=== PATIENT | female | born 1980 | race Caucasian/White ===

== ENCOUNTER 2022-01-13 15:45 | Inpatient (IN) | payer BC ==
[2022-01-13] MEDS ORDERED: DUONEB 0.5-3 MG/3 ml Neb IH ONE ×2 (16:21→16:28)
--- NOTE | 2022-01-13 16:22 | ERPHSYRPT ---
- History of Present Illness Source: patient Exam Limitations: no limitations Patient Subjective Stated Complaint: SOB Triage Nursing Assessment: Patient brought back to ED per w/c and transferred self to bed. Patient A+O X3. Patient's skin flushed, warm and dry. Patient was seen in [facility] and sent to ED for SOB. [facility] and given Z ankur and tessalon pearls. Patient states she is not getting any better. Patient complains of non productive cough and mid sternal, jonh lungs and back pain 5/10. Lungs noted to be diminsinshed throughout. Physician History: 41 yo wf w dyspnea x3days/cough b28brav/Mild coryza. Dyspnea worse upon exertion. She smokes 1ppd. Pt states that her chest is tight but denies chest pain. N/V/D/fever/ST/PND/orthopnea all denied. Pt seen several days ago in clinic and started on Z-ankur and prednisone. Timing/Duration: other (Dyspnea x3days/Cough x13 days) Cough Quality/Degree: dry cough Possible Cause: occasional episodes Modifying Factors: Improves With: coughing, deep breath, exertion Associated Symptoms: chest pain/soreness, cough, nasal congestion, nasal drainage, shortness of breath, wheezing, No fever, No chills, No dizziness, No earache, No facial pain, No headache, No lightheadedness, No muscle aches, No sinus infection, No sore throat Allergies/Adverse Reactions: No Known Drug Allergies Allergy (Verified 01/13/22 15:47) Home Medications: Pregabalin 200 mg PO TID 01/13/22 [History] Hx Tetanus, Diphtheria Vaccination/Date Given: Yes Hx Influenza Vaccination/Date Given: No Hx Pneumococcal Vaccination/Date Given: No Immunizations Up to Date: Yes Travel Risk - International Travel Have you traveled outside of the country in past 3 weeks: No - Coronavirus Screening Are you exhibiting any of the following symptoms?: No Close contact with a COVID-19 positive Pt in past 14-21 Days: No - Vaccine Status Have you recieved a Covid-19 vaccination: Yes 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 - Vaccination Dates Date of 2cond Vaccination (if applicable): na - Review of Systems Constitutional: No Symptoms Eyes: No Symptoms Ears, Nose, & Throat: No Symptoms, Nose Pain, Nose Congestion, Nose Discharge Respiratory: No Symptoms, Cough, Dyspnea, Dyspnea on Exertion (MORENO) Cardiac: No Symptoms Abdominal/Gastrointestinal: No Symptoms Genitourinary Symptoms: No Symptoms Musculoskeletal: No Symptoms Skin: No Symptoms Neurological: No Symptoms Psychological: No Symptoms Endocrine: No Symptoms Hematologic/Lymphatic: No Symptoms Immunological/Allergic: No Symptoms - Past Medical History Pertinent Past Medical History: Yes Neurological History: No Pertinent History ENT History: No Pertinent History Cardiac History: Other Respiratory History: No Pertinent History Endocrine Medical History: Other Musculoskeletal History: Degenerative Disk Disease, Other GI Medical History: No Pertinent History Psycho-Social History: No Pertinent History Female Reproductive Disorders: No Pertinent History Other Medical History: Adrenal gland tumor - Past Surgical History Past Surgical History: Yes Neuro Surgical History: No Pertinent History Cardiac: No Pertinent History Gastrointestinal: No Pertinent History Genitourinary: No Pertinent History Musculoskeletal: No Pertinent History Female Surgical History: Tubal Ligation Other Surgical History: ADRENAL GLAND REMOVAL - Social History Smoking Status: Current every day smoker How long have you smoked: years Exposure to second hand smoke: Yes Drug Use: none Patient Lives Alone: No Significant Family History: no pertinent family hx - Female History Hx Last Menstrual Period: currently Hx Now: No - Nursing Vital Signs Nursing Vital Signs: Initial Vital Signs Temperature 99.4 F 01/13/22 15:49 Pulse Rate 93 H 01/13/22 15:49 Respiratory Rate 28 H 01/13/22 15:49 Blood Pressure 150/103 01/13/22 15:49 O2 Sat by Pulse Oximetry 98 01/13/22 15:49 Pain Scale Pain Intensity 3 Hypertensive/Tachyneic - Physical Exam General Appearance: no apparent distress Eye Exam: PERRL/EOMI, eyes nml inspection Ears, Nose, Throat Exam: pharynx normal, other (TM's occluded by cerumen B) Neck Exam: normal inspection, non-tender, supple, full range of motion, No meningismus, No mass, No Brudzinski, No Kernig's, No carotid bruit Respiratory Exam: airway intact, prolonged expirations, wheezing (Scattered Wheezes B) Cardiovascular Exam: regular rate/rhythm, normal heart sounds, capillary refill <2 sec, No murmur Gastrointestinal/Abdomen Exam: soft, normal bowel sounds, No tenderness Back Exam: normal inspection, normal range of motion Extremity Exam: normal inspection, normal range of motion, pelvis stable, No melton Neurologic Exam: alert, oriented x 3, cooperative, lump maker II-XII nml as tested, normal mood/affect, nml cerebellar function, nml station & gait, sensation nml Skin Exam: normal color, warm, dry Lymphatic Exam: No adenopathy SpO2 Interpretation: normal SpO2: 98 O2 Delivery: Room Air - Course Nursing assessment & vital signs reviewed: Yes EKG Interpreted by Me: RATE (NSR/Rate 89/Normal QT-QTc/Low voltage/Flat T waves/No acute ST changes) - Radiology Exams Chest X-ray Interpretation: Reviewed by me (Reviewed from clinic today/NAD per Dr. Gao) - CT Exams Chest CT Interpretation: Tele-radiologist Report (No PE/Diffuse tree in bud infiltrates) Ordered Tests: Active Orders 24 hr Category Date Time Status IV Insertion STAT Care 01/13/22 16:21 Completed Heart-Healthy Diet Diet 01/14/22 Breakfast Active CHEST WITH CONTRAST [CT] Stat Exams 01/13/22 17:52 Completed BNP [NT PRO BNP] Stat Lab 01/13/22 19:32 Completed CBC W DIFF AM.LAB Lab 01/14/22 04:00 Ordered CBC W DIFF Stat Lab 01/13/22 16:18 Completed CMP AM.LAB Lab 01/14/22 04:00 Ordered CMP Stat Lab 01/13/22 19:32 Completed D-DIMER QUANTITATIVE Stat Lab 01/13/22 16:18 Completed NT PRO BNP Stat Lab 01/13/22 16:18 Completed PROTIME WITH INR Stat Lab 01/13/22 16:18 Completed PTT Stat Lab 01/13/22 16:18 Completed TROPONIN Q4H Lab 01/13/22 16:18 Completed TROPONIN Q4H Lab 01/13/22 19:20 Completed TROPONIN Q4H Lab 01/14/22 00:15 Ordered Respiratory Therapy Assessment DAILY RT 01/13/22 16:44 Completed Medication Summary Generic Name Dose Route Start Last Admin Trade Name Freq PRN Reason Stop Dose Admin Albuterol/Ipratropium 3 ml 01/13/22 23:00 01/13/22 23:03 Ipratropium/Albuterol Sulfate 3 Ml Ampul.Neb IH 02/12/22 22:59 3 ml Q4HRT FLORA Administration Chlorphenir/Hydrocodone Polistirex 5 ml 01/13/22 22:37 01/13/22 22:53 Hydrocodone/Chlorphen P-Stirex 1 Ml Teresa.Er.12h PO 02/12/22 22:36 5 ml Q6H PRN Administration COUGH Methylprednisolone Sodium 0 mg 01/14/22 00:00 01/14/22 00:31 Succinate 125 mg/ Sterile IV 02/13/22 00:00 Not Given Water 2 ml Q6HT FLORA Enoxaparin Sodium 40 mg 01/14/22 10:00 Enoxaparin Sodium 40 Mg/0.4 Ml Syringe SQ 02/13/22 09:59 DAILY FLORA Sodium Chloride 1,000 mls @ 100 mls/hr 01/13/22 21:15 01/13/22 21:19 Sodium Chloride 0.9% 1000 Ml IV 02/12/22 21:14 100 mls/hr .Q10H FLORA Administration Ceftriaxone Sodium/Dextrose 1 g in 50 mls @ 100 mls/hr 01/14/22 10:00 Rocephin 1 Gm-D5w 50 Ml Bag IV 01/17/22 09:59 Q24H10 FLORA Azithromycin 500 mg in 250 mls @ 250 mls/hr 01/14/22 10:00 Zithromax 500 Mg/ 250 Ml Nacl Premix IV 02/13/22 09:59 Q24H10 FLORA Ketorolac Tromethamine 30 mg 01/13/22 21:04 Ketorolac Tromethamine 30 Mg/Ml Inj IV 01/18/22 21:03 Q6H PRN PRN PAIN Ondansetron HCl 4 mg 01/13/22 21:04 Ondansetron Hcl 4 Mg/2 Ml Vial IV 02/12/22 21:03 Q6H PRN PRN NAUSEA/VOMITING Pantoprazole Sodium 40 mg 01/14/22 10:00 Pantoprazole 40 Mg Vial IV 02/13/22 09:59 Q24H10 FLORA Discontinued Medications Generic Name Dose Route Start Last Admin Trade Name Freq PRN Reason Stop Dose Admin Albuterol Sulfate 2.5 mg 01/13/22 17:10 01/13/22 17:24 Albuterol Sulfate 2.5 Mg/3 Ml Neb IH 01/13/22 17:11 2.5 mg STAT ONE Administration Albuterol Sulfate Confirm 01/13/22 17:12 Albuterol Sulfate 2.5 Mg/3 Ml Neb Administered 01/13/22 17:13 Dose 2.5 mg IH .STK-MED ONE Albuterol/Ipratropium 3 ml 01/13/22 16:21 01/13/22 16:43 Ipratropium/Albuterol Sulfate 3 Ml Ampul.Neb IH 01/13/22 16:22 3 ml STAT ONE Administration Albuterol/Ipratropium Confirm 01/13/22 16:28 Ipratropium/Albuterol Sulfate 3 Ml Ampul.Neb Administered 01/13/22 16:29 Dose 3 ml IH .STK-MED ONE Methylprednisolone Sodium 0 mg 01/13/22 21:02 01/13/22 21:18 Succinate 125 mg/ Sterile IV 01/13/22 21:03 125 mg Water 2 ml STAT ONE Administration Ceftriaxone Sodium/Dextrose 1 g in 50 mls @ 100 mls/hr 01/13/22 21:02 01/13/22 21:17 Rocephin 1 Gm-D5w 50 Ml Bag IV 01/13/22 21:31 100 mls/hr STAT STA 100 mls/hr Administration Ceftriaxone Sodium/Dextrose Confirm 01/13/22 21:20 Rocephin 1 Gm-D5w 50 Ml Bag Administered 01/13/22 21:21 Dose 1 g in 50 mls @ ud IV .STK-MED ONE Ketorolac Tromethamine 15 mg 01/13/22 20:25 01/13/22 20:27 Ketorolac Tromethamine 30 Mg/Ml Inj IV 01/13/22 20:26 15 mg STAT ONE Administration Ketorolac Tromethamine Confirm 01/13/22 20:27 Ketorolac Tromethamine 30 Mg/Ml Inj Administered 01/13/22 20:28 Dose 30 mg .ROUTE .STK-MED ONE Methylprednisolone Sodium Succinate Confirm 01/13/22 21:20 Methylprednis Sod Succ 125 Mg/2 Ml Vial Administered 01/13/22 21:21 Dose 125 mg .ROUTE .STK-MED ONE Sterile Water Confirm 01/13/22 21:20 Water For Injection,Sterile 10 Ml Vial Administered 01/13/22 21:21 Dose 10 ml IJ .STK-MED ONE Lab/Rad Data: Laboratory Result Diagrams 01/13/22 16:18 01/13/22 19:32 Laboratory Results 01/13/22 01/13/22 01/13/22 Range/Units 19:32 19:20 16:18 WBC (4.0-10.5) x10^3/uL RBC (4.1-5.4) x10^6/uL Hgb (12.0-16.0) g/dL Hct (35-47) % MCV (78-100) fL MCH (26-32) pg MCHC (32-36) g/dL RDW (11.5-14.0) % Plt Count (150-450) x10^3/uL MPV (7.5-11.0) fL Gran % (36.0-66.0) % Immature Gran % (Auto) (0.00-0.4) % Nucleat RBC Rel Count (0.00-0.1) % Eos # (Auto) (0-0.5) x10^3/uL Immature Gran # (Auto) (0.00-0.03) x10^3u/L Absolute Lymphs (auto) (1.0-4.6) x10^3/uL Absolute Monos (auto) (0.0-1.3) x10^3/uL Absolute Nucleated RBC (0.00-0.01) x10^3u/L Lymphocytes % (24.0-44.0) % Monocytes % (0.0-12.0) % Eosinophils % (0.00-5.0) % Basophils % (0.0-0.4) % Absolute Granulocytes (1.4-6.9) x10^3/uL Basophils # (0-0.4) x10^3/uL PT (9.4-12.5) SECONDS INR (0.8-3.0) APTT (25.1-36.5) SECONDS D-Dimer (0.0-0.50) mg/L Sodium 137 Sodium Direct (138-146) mmol/L Potassium 4.0 (3.5-4.9) mmol/L Chloride 104 (98-109) mmol/L Carbon Dioxide 26 (24-29) mmol/L Anion Gap 11.1 BUN 14 Venous BUN (8-26) mg/dL Creatinine 0.55 (0.6-1.3) mg/dL Estimated GFR > 60.0 Glucose 148 H (70-105) mg/dL Calcium 9.4 Ionized Calcium (1.12-1.32) mmol/L Total Bilirubin 0.40 AST 32 ALT 29 Alkaline Phosphatase 137 H Troponin (0.00-0.03) ng/mL Troponin I < 0.012 (0.000-0.034) ng/mL NT-Pro-B Natriuret Pep 163 (0-450) pg/mL Serum Total Protein 7.4 Albumin 4.4 Influenza Type A Ag NEGATIVE (NEGATIVE) Influenza Type B Ag NEGATIVE (NEGATIVE) RSV (PCR) NEGATIVE (Negative) SARS-CoV-2 (PCR) NEGATIVE (NEGATIVE) 01/13/22 01/13/22 01/13/22 Range/Units 16:18 16:18 16:18 WBC (4.0-10.5) x10^3/uL RBC (4.1-5.4) x10^6/uL Hgb (12.0-16.0) g/dL Hct (35-47) % MCV (78-100) fL MCH (26-32) pg MCHC (32-36) g/dL RDW (11.5-14.0) % Plt Count (150-450) x10^3/uL MPV (7.5-11.0) fL Gran % (36.0-66.0) % Immature Gran % (Auto) (0.00-0.4) % Nucleat RBC Rel Count (0.00-0.1) % Eos # (Auto) (0-0.5) x10^3/uL Immature Gran # (Auto) (0.00-0.03) x10^3u/L Absolute Lymphs (auto) (1.0-4.6) x10^3/uL Absolute Monos (auto) (0.0-1.3) x10^3/uL Absolute Nucleated RBC (0.00-0.01) x10^3u/L Lymphocytes % (24.0-44.0) % Monocytes % (0.0-12.0) % Eosinophils % (0.00-5.0) % Basophils % (0.0-0.4) % Absolute Granulocytes (1.4-6.9) x10^3/uL Basophils # (0-0.4) x10^3/uL PT 10.8 (9.4-12.5) SECONDS INR 1.02 (0.8-3.0) APTT 25.1 (25.1-36.5) SECONDS D-Dimer 0.47 (0.0-0.50) mg/L Sodium Cancelled Sodium Direct 139 (138-146) mmol/L Potassium 3.6 (3.5-4.9) mmol/L Chloride 104 (98-109) mmol/L Carbon Dioxide 26 (24-29) mmol/L Anion Gap Cancelled BUN Cancelled Venous BUN 16 (8-26) mg/dL Creatinine 0.6 (0.6-1.3) mg/dL Estimated GFR Cancelled Glucose 151 H (70-105) mg/dL Calcium Cancelled Ionized Calcium 1.15 (1.12-1.32) mmol/L Total Bilirubin Cancelled AST Cancelled ALT Cancelled Alkaline Phosphatase Cancelled Troponin 0.00 (0.00-0.03) ng/mL Troponin I < 0.012 (0.000-0.034) ng/mL NT-Pro-B Natriuret Pep 153 (0-450) pg/mL Serum Total Protein Cancelled Albumin Cancelled Influenza Type A Ag (NEGATIVE) Influenza Type B Ag (NEGATIVE) RSV (PCR) (Negative) SARS-CoV-2 (PCR) (NEGATIVE) 01/13/22 Range/Units 16:18 WBC 8.4 (4.0-10.5) x10^3/uL RBC 4.91 (4.1-5.4) x10^6/uL Hgb 14.8 (12.0-16.0) g/dL Hct 44.4 (35-47) % MCV 90.4 (78-100) fL MCH 30.1 (26-32) pg MCHC 33.3 (32-36) g/dL RDW 12.9 (11.5-14.0) % Plt Count 289 (150-450) x10^3/uL MPV 10.2 (7.5-11.0) fL Gran % 85.5 H (36.0-66.0) % Immature Gran % (Auto) 1.8 H (0.00-0.4) % Nucleat RBC Rel Count 0.0 (0.00-0.1) % Eos # (Auto) 0 (0-0.5) x10^3/uL Immature Gran # (Auto) 0.15 H (0.00-0.03) x10^3u/L Absolute Lymphs (auto) 0.92 L (1.0-4.6) x10^3/uL Absolute Monos (auto) 0.11 (0.0-1.3) x10^3/uL Absolute Nucleated RBC 0.00 (0.00-0.01) x10^3u/L Lymphocytes % 11.0 L (24.0-44.0) % Monocytes % 1.3 (0.0-12.0) % Eosinophils % 0.0 (0.00-5.0) % Basophils % 0.4 (0.0-0.4) % Absolute Granulocytes 7.15 H (1.4-6.9) x10^3/uL Basophils # 0.03 (0-0.4) x10^3/uL PT (9.4-12.5) SECONDS INR (0.8-3.0) APTT (25.1-36.5) SECONDS D-Dimer (0.0-0.50) mg/L Sodium Sodium Direct (138-146) mmol/L Potassium (3.5-4.9) mmol/L Chloride (98-109) mmol/L Carbon Dioxide (24-29) mmol/L Anion Gap BUN Venous BUN (8-26) mg/dL Creatinine (0.6-1.3) mg/dL Estimated GFR Glucose (70-105) mg/dL Calcium Ionized Calcium (1.12-1.32) mmol/L Total Bilirubin AST ALT Alkaline Phosphatase Troponin (0.00-0.03) ng/mL Troponin I (0.000-0.034) ng/mL NT-Pro-B Natriuret Pep (0-450) pg/mL Serum Total Protein Albumin Influenza Type A Ag (NEGATIVE) Influenza Type B Ag (NEGATIVE) RSV (PCR) (Negative) SARS-CoV-2 (PCR) (NEGATIVE) - Progress Progress: improved Air Movement: fair Progress Note: 01/13/22 21:00 Duoneb x1 w mild improvement Albuterol neb x1 w mild improvement Pt w scattered wheezes and rhonchi B after treatments Obs per Dr. Vanessa 01/13/22 21:03 Blood cultures x2 Rocephin 1gm IV Solumedrol 125mg IV Blood Culture(s) Obtained: Yes Antibiotics given: Yes Discussed with Dr.: Diaz Counseled pt/family regarding: lab results, diagnosis, need for follow-up, rad results - Departure Departure Disposition: Observation Clinical Impression: Pneumonia Condition: Stable Critical Care Time: No
[2022-01-13 16:23] LABS: Absolute Neutrophil Ct (ANC) 7.15 x10^3/uL (1.4-6.9); Basophil (Absolute #) 0.03 x10^3/uL (0-0.4); Eosinophil (Absolute #) 0 x10^3/uL (0-0.5); Hematocrit 44.4 % (35-47); Hemoglobin 14.8 g/dL (12.0-16.0); Lymphocyte (Absolute #) 0.92 x10^3/uL (1.0-4.6); Mean Cell Volume 90.4 fL (78-100); Mean Corpuscular Hemoglobin 30.1 pg (26-32); Mean Corpuscular Hgb Concent. 33.3 g/dL (32-36); Mean Platelet Volume 10.2 fL (7.5-11.0); Monocyte (Absolute #) 0.11 x10^3/uL (0.0-1.3); Monocytes % 1.3 % (0.0-12.0); Neutrophil % 85.5 % (36.0-66.0); Platelet Count 289 x10^3/uL (150-450); Red Blood Count 4.91 x10^6/uL (4.1-5.4); Red Cell Distribution Width 12.9 % (11.5-14.0); White Blood Count 8.4 x10^3/uL (4.0-10.5)
[2022-01-13 16:38] LABS: D-DIMER QUANTITATIVE 0.47 mg/L (0.0-0.50); INR 1.02 (0.8-3.0); PROTIME 10.8 SECONDS (9.4-12.5); PTT 25.1 SECONDS (25.1-36.5)
[2022-01-13 16:54] LABS: INFLUENZA A NEGATIVE (NEGATIVE); INFLUENZA B NEGATIVE (NEGATIVE); RESPIRATORY SYNCTIAL VIRUS NEGATIVE (Negative); SARS-CoV-2 Xpert Express NEGATIVE (NEGATIVE)
[2022-01-13 16:57] LABS: ISTAT K 3.6 mmol/L (3.5-4.9)
[2022-01-13 16:58] LABS: ISTAT CREA 0.6 mg/dL (0.6-1.3)
[2022-01-13] MEDS ORDERED: PROVENTIL 2.5 MG/3 ML NEB IH ONE ×2 (17:10→17:12)
[2022-01-13 20:01] LABS: ALBUMIN 4.4 g/dL (3.5-5.0); ALKALINE PHOSPHATASE 137 U/L (38-126); ANION GAP 11.1 MEQ/L (5-15); BLOOD UREA NITROGEN 14 mg/dL (7-17); CHLORIDE 104 mmol/L (98-107); Calcium 9.4 mg/dL (8.4-10.2); Carbon Dioxide 26 mmol/L (22-30); Creatinine 1 0.55 mg/dL (0.52-1.04); EST GLOMERULAR FILTRATION RATE > 60.0 ML/MIN; Glucose 148 mg/dL (74-106); NT PRO BNP 163 pg/mL (0-450); SGOT/AST 32 U/L (14-36); SGPT/ALT 29 U/L (0-35); SODIUM 137 mmol/L (137-145); Total Protein 7.4 g/dL (6.3-8.2)
[2022-01-13] MEDS ORDERED: TORAdol 30 mg Injection IV ONE (20:25)
[2022-01-13] MEDS ORDERED: TORAdol 30 mg Injection ONE (20:27)
[2022-01-13] MEDS ORDERED: ROCEPHIN 1 Gm-D5w 50 ml Bag** 1 G/50 ML IVPB IV STA (21:02)
[2022-01-13] MEDS ORDERED: solu-MEDROL 125 MG, Sterile H2O 10 ml 2 ML IV ONE ×2 (21:02)
[2022-01-13] MEDS ORDERED: Zofran 4 MG/2 ML VIAL IV PRN (21:04)
[2022-01-13] MEDS: Sodium Chloride 0.9% 1000 ML 1,000 ML IV SCH (21:19)
[2022-01-13] MEDS ORDERED: ROCEPHIN 1 Gm-D5w 50 ml Bag** 1 G/50 ML IVPB IV ONE (21:20)
[2022-01-13] MEDS ORDERED: solu-MEDROL ONE (21:20)
[2022-01-13] MEDS ORDERED: Sterile H2O 10 ml IJ ONE (21:20)
--- NOTE | 2022-01-13 22:23 | XRAY ---
Indication: Short of breath, chest pressure, and cough. Elevated d-dimer. Multiple contiguous axial images obtained through the chest using 100 cc Isovue 370 contrast and PE protocol. Comparison: None Good opacification of the pulmonary arteries to include the lobar and segmental branches. No pulmonary embolus. Heart not enlarged. Aorta is normal in course and caliber. No pathologic mediastinal/hilar lymphadenopathy. Lungs demonstrates mild posterior right lower lobe and minimal posterior left lower lobe interstitial alveolar opacities. No consolidation or effusion. Medial left left base and lesser degree right base peripheral fibrosis/scarring. Bony thorax intact. Limited upper abdomen demonstrates fatty liver. Impression: 1. Negative pulmonary embolus. 2. Mild right lower and minimal left lower lobe interstitial alveolar opacities favoring pneumonia. 3. Incidental fatty liver. Comment: Preliminary interpretation made by C. No critical discrepancy.
[2022-01-13] MEDS ORDERED: HYDROCODONE-CHLORPHEN ER SUSP PO PRN (22:37)
[2022-01-13] MEDS: DUONEB 0.5-3 MG/3 ml Neb IH SCH (23:03)
[2022-01-14] MEDS: solu-MEDROL 125 MG, Sterile H2O 10 ml 2 ML IV SCH ×8 (00:31→19:05)
[2022-01-14] MEDS: DUONEB 0.5-3 MG/3 ml Neb IH SCH ×7 (03:21→23:59)
[2022-01-14] MEDS ORDERED: Sterile H2O 10 ml IJ ONE (05:25)
[2022-01-14] MEDS ORDERED: solu-MEDROL ONE (05:25)
[2022-01-14 06:08] LABS: Absolute Neutrophil Ct (ANC) 6.59 x10^3/uL (1.4-6.9); Basophil (Absolute #) 0.02 x10^3/uL (0-0.4); Eosinophil (Absolute #) 0 x10^3/uL (0-0.5); Hematocrit 43.3 % (35-47); Hemoglobin 13.9 g/dL (12.0-16.0); Lymphocytes % 10.6 % (24.0-44.0); Mean Cell Volume 92.1 fL (78-100); Mean Corpuscular Hemoglobin 29.6 pg (26-32); Mean Corpuscular Hgb Concent. 32.1 g/dL (32-36); Mean Platelet Volume 10.3 fL (7.5-11.0); Monocyte (Absolute #) 0.05 x10^3/uL (0.0-1.3); Monocytes % 0.7 % (0.0-12.0); Neutrophil % 86.9 % (36.0-66.0); Platelet Count 266 x10^3/uL (150-450); Red Cell Distribution Width 12.9 % (11.5-14.0); White Blood Count 7.6 x10^3/uL (4.0-10.5)
[2022-01-14 07:12] LABS: ALKALINE PHOSPHATASE 119 U/L (38-126); ANION GAP 12.6 MEQ/L (5-15); BLOOD UREA NITROGEN 14 mg/dL (7-17); CHLORIDE 105 mmol/L (98-107); Calcium 8.5 mg/dL (8.4-10.2); Carbon Dioxide 24 mmol/L (22-30); Creatinine 1 0.44 mg/dL (0.52-1.04); EST GLOMERULAR FILTRATION RATE > 60.0 ML/MIN; Glucose 176 mg/dL (74-106); SGOT/AST 24 U/L (14-36); SGPT/ALT 25 U/L (0-35); SODIUM 137 mmol/L (137-145)
[2022-01-14] MEDS: Sodium Chloride 0.9% 1000 ML 1,000 ML IV SCH ×2 (09:02→20:08)
[2022-01-14] MEDS: ENOXAPARIN SODIUM SQ SCH (09:03)
[2022-01-14] MEDS: PROTONIX 40 MG IV IV SCH (09:03)
[2022-01-14] MEDS: HYDROCODONE-CHLORPHEN ER SUSP PO PRN (09:05)
[2022-01-14] MEDS ORDERED: Zithromax 500 MG/ 250 ML NaCl Premix 500 MG/250 ML IVPB IV SCH (10:00)
[2022-01-14] MEDS ORDERED: APRESOLINE 20 MG/ML INJ IV PRN (11:21)
[2022-01-14] MEDS ORDERED: xanAX 0.25 MG PO PRN (12:46)
[2022-01-14] MEDS ORDERED: Nicoderm CQ 21 MG TOP ONE (13:35)
--- NOTE | 2022-01-14 13:43 | PCM.HP ---
History of Present Illness - Chief Complaint Chief Complaint: Pneumonia History of Present Illness: is a 41 year old female pt of Lucy Alberto who was admitted through ER with pneumonia. She was sick for 2 weeks, started with a tickle in her throat/chest on a Sunday, by Sun she tested for covid and was neg. She worsened and saw Nadya in earlier this week () and was given 5d of 40mg prednisone, tessalon perrles, and a zpack. The first day afterward she felt great, then that night started feeling worse and continued feeling worse over the next several days. She returned to and saw Chris who listened to her lungs, made her walk with pulse oximeter (O2 dropped to 91% with HR 120) and sent her to ER. Her CXR was nonacute, but CT chest with RLL, LLL airspace dz. Given zithromax and rocephin in ER, along with 125mg steroid IV (which has been continued q6h). CT also showed fatty liver, which was not discussed with pt at this time. She denies fever, CP (at first chest felt tight). Cough is nonprod. Tessalon made her cough worse, but tussionex yesterday made it better. She is very, very anxious today, wanted to leave the hospital but RN convinced her to stay. We started some xanax which has not made a huge difference yet, although her family says she is acting better than she was. Says she hasn't slept. Needs a shower. She smokes 1/2 to 1 PPD. Had adrenal gland tumor about 10 yrs ago that had to be resected. - Review of Systems Respiratory: Cough, Short Of Breath, Wheezing Cardiac: Chest Pain Musculoskeletal: Arthralgias Psychological: Anxiety, Other (+TOB), No Suicidal Ideations, No Homicidal Ideations All Other Systems: Reviewed and Negative Medications & Allergies Home Medications: Home Medication List Pregabalin 200 mg PO TID 01/13/22 [History Confirmed 01/13/22] Allergies/Adverse Reactions: Allergies Allergy/AdvReac Type Severity Reaction Status Date / Time No Known Drug Allergies Allergy Verified 01/13/22 15:47 - Past Medical History Past Medical History: Yes Neurological History: No Pertinent History ENT History: No Pertinent History Cardiac History: Other Respiratory History: No Pertinent History Endocrine Medical History: Other Musculoskelatal History: Degenerative Disk Disease, Other GI Medical History: No Pertinent History History: No Pertinent History Pyscho-Social History: No Pertinent History Reproductive Disorders: No Pertinent History Comment: Adrenal gland tumor - Female History Hx Last Menstrual Period: currently Are you now?: No - Past Surgical History Past Surgical History: Yes Neuro Surgical History: No Pertinent History Cardiac History: No Pertinent History Respiratory Surgery: No Pertinent History GI Surgical History: No Pertinent History Genitourinary Surgical Hx: No Pertinent History Musculskeletal Surgical Hx: No Pertinent History Female Surgical History: Tubal Ligation Other Surgical History: ADRENAL GLAND REMOVAL - Social History Smoking Status: Current every day smoker How long have you smoked: years Exposure to second hand smoke: Yes Alcohol: Weekly Drug Use: none Significant Family History: no pertinent family hx - Physical Exam Vital Signs: Vital Signs - 24 hr Temp Pulse Resp BP Pulse Ox 01/14/22 12:00 97.5 F 85 19 142/88 90 L 01/14/22 11:29 78 18 93 L 01/14/22 08:00 97.1 F 76 19 171/87 93 L 01/14/22 07:48 75 18 97 01/14/22 03:57 97.1 F 86 18 121/70 92 L 01/14/22 03:22 80 18 95 01/14/22 01:05 98 01/13/22 23:05 104 H 18 97 01/13/22 21:51 98.4 F 71 20 147/85 93 L 01/13/22 20:00 80 167/81 97 01/13/22 19:09 82 22 144/79 94 L 01/13/22 18:04 90 18 141/86 93 L 01/13/22 17:24 117 H 20 96 01/13/22 17:01 81 20 139/87 94 L 01/13/22 17:00 82 18 139/67 93 L 01/13/22 16:44 95 H 18 95 01/13/22 15:49 99.4 F 93 H 28 H 150/103 98 General Appearance: mild distress (anxious), alert Neurologic Exam: oriented x 3, cooperative Eye Exam: eyes nml inspection Ears, Nose, Throat Exam: moist mucous membranes Neck Exam: normal inspection Respiratory Exam: normal breath sounds, rhonchi (scattered), wheezing (throughout), No crackles/rales Cardiovascular Exam: regular rate/rhythm, normal heart sounds, No murmur, No edema Gastrointestinal/Abdomen Exam: soft, normal bowel sounds, No tenderness, No distention, No mass, No guarding, No rebound Back Exam: normal inspection, No rash Extremity Exam: normal inspection, No pedal edema, No swelling Skin Exam: normal color, warm, dry, No rash Results - Labs Lab/Micro Results: Lab Results-Last 24 Hours 01/13/22 01/13/22 01/13/22 Range/Units 16:18 16:18 16:18 WBC 8.4 (4.0-10.5) x10^3/uL RBC 4.91 (4.1-5.4) x10^6/uL Hgb 14.8 (12.0-16.0) g/dL Hct 44.4 (35-47) % MCV 90.4 (78-100) fL MCH 30.1 (26-32) pg MCHC 33.3 (32-36) g/dL RDW 12.9 (11.5-14.0) % Plt Count 289 (150-450) x10^3/uL MPV 10.2 (7.5-11.0) fL Gran % 85.5 H (36.0-66.0) % Immature Gran % (Auto) 1.8 H (0.00-0.4) % Nucleat RBC Rel Count 0.0 (0.00-0.1) % Eos # (Auto) 0 (0-0.5) x10^3/uL Immature Gran # (Auto) 0.15 H (0.00-0.03) x10^3u/L Absolute Lymphs (auto) 0.92 L (1.0-4.6) x10^3/uL Absolute Monos (auto) 0.11 (0.0-1.3) x10^3/uL Absolute Nucleated RBC 0.00 (0.00-0.01) x10^3u/L Lymphocytes % 11.0 L (24.0-44.0) % Monocytes % 1.3 (0.0-12.0) % Eosinophils % 0.0 (0.00-5.0) % Basophils % 0.4 (0.0-0.4) % Absolute Granulocytes 7.15 H (1.4-6.9) x10^3/uL Basophils # 0.03 (0-0.4) x10^3/uL PT 10.8 (9.4-12.5) SECONDS INR 1.02 (0.8-3.0) APTT 25.1 (25.1-36.5) SECONDS D-Dimer 0.47 (0.0-0.50) mg/L Sodium Cancelled Sodium Direct 139 (138-146) mmol/L Potassium 3.6 (3.5-4.9) mmol/L Chloride 104 (98-109) mmol/L Carbon Dioxide 26 (24-29) mmol/L Anion Gap Cancelled BUN Cancelled Venous BUN 16 (8-26) mg/dL Creatinine 0.6 (0.6-1.3) mg/dL Estimated GFR Cancelled Glucose 151 H (70-105) mg/dL Calcium Cancelled Ionized Calcium 1.15 (1.12-1.32) mmol/L Total Bilirubin Cancelled AST Cancelled ALT Cancelled Alkaline Phosphatase Cancelled Troponin 0.00 (0.00-0.03) ng/mL Troponin I (0.000-0.034) ng/mL NT-Pro-B Natriuret Pep 153 (0-450) pg/mL Serum Total Protein Cancelled Albumin Cancelled Influenza Type A Ag (NEGATIVE) Influenza Type B Ag (NEGATIVE) RSV (PCR) (Negative) SARS-CoV-2 (PCR) (NEGATIVE) 01/13/22 01/13/22 01/13/22 Range/Units 16:18 16:18 19:20 WBC (4.0-10.5) x10^3/uL RBC (4.1-5.4) x10^6/uL Hgb (12.0-16.0) g/dL Hct (35-47) % MCV (78-100) fL MCH (26-32) pg MCHC (32-36) g/dL RDW (11.5-14.0) % Plt Count (150-450) x10^3/uL MPV (7.5-11.0) fL Gran % (36.0-66.0) % Immature Gran % (Auto) (0.00-0.4) % Nucleat RBC Rel Count (0.00-0.1) % Eos # (Auto) (0-0.5) x10^3/uL Immature Gran # (Auto) (0.00-0.03) x10^3u/L Absolute Lymphs (auto) (1.0-4.6) x10^3/uL Absolute Monos (auto) (0.0-1.3) x10^3/uL Absolute Nucleated RBC (0.00-0.01) x10^3u/L Lymphocytes % (24.0-44.0) % Monocytes % (0.0-12.0) % Eosinophils % (0.00-5.0) % Basophils % (0.0-0.4) % Absolute Granulocytes (1.4-6.9) x10^3/uL Basophils # (0-0.4) x10^3/uL PT (9.4-12.5) SECONDS INR (0.8-3.0) APTT (25.1-36.5) SECONDS D-Dimer (0.0-0.50) mg/L Sodium Sodium Direct (138-146) mmol/L Potassium (3.5-4.9) mmol/L Chloride (98-109) mmol/L Carbon Dioxide (24-29) mmol/L Anion Gap BUN Venous BUN (8-26) mg/dL Creatinine (0.6-1.3) mg/dL Estimated GFR Glucose (70-105) mg/dL Calcium Ionized Calcium (1.12-1.32) mmol/L Total Bilirubin AST ALT Alkaline Phosphatase Troponin (0.00-0.03) ng/mL Troponin I < 0.012 < 0.012 (0.000-0.034) ng/mL NT-Pro-B Natriuret Pep (0-450) pg/mL Serum Total Protein Albumin Influenza Type A Ag NEGATIVE (NEGATIVE) Influenza Type B Ag NEGATIVE (NEGATIVE) RSV (PCR) NEGATIVE (Negative) SARS-CoV-2 (PCR) NEGATIVE (NEGATIVE) 01/13/22 01/14/22 01/14/22 Range/Units 19:32 05:10 05:10 WBC 7.6 (4.0-10.5) x10^3/uL RBC 4.70 (4.1-5.4) x10^6/uL Hgb 13.9 (12.0-16.0) g/dL Hct 43.3 (35-47) % MCV 92.1 (78-100) fL MCH 29.6 (26-32) pg MCHC 32.1 (32-36) g/dL RDW 12.9 (11.5-14.0) % Plt Count 266 (150-450) x10^3/uL MPV 10.3 (7.5-11.0) fL Gran % 86.9 H (36.0-66.0) % Immature Gran % (Auto) 1.5 H (0.00-0.4) % Nucleat RBC Rel Count 0.0 (0.00-0.1) % Eos # (Auto) 0 (0-0.5) x10^3/uL Immature Gran # (Auto) 0.11 H (0.00-0.03) x10^3u/L Absolute Lymphs (auto) 0.80 L (1.0-4.6) x10^3/uL Absolute Monos (auto) 0.05 (0.0-1.3) x10^3/uL Absolute Nucleated RBC 0.00 (0.00-0.01) x10^3u/L Lymphocytes % 10.6 L (24.0-44.0) % Monocytes % 0.7 (0.0-12.0) % Eosinophils % 0.0 (0.00-5.0) % Basophils % 0.3 (0.0-0.4) % Absolute Granulocytes 6.59 (1.4-6.9) x10^3/uL Basophils # 0.02 (0-0.4) x10^3/uL PT (9.4-12.5) SECONDS INR (0.8-3.0) APTT (25.1-36.5) SECONDS D-Dimer (0.0-0.50) mg/L Sodium 137 Sodium Direct (138-146) mmol/L Potassium 4.0 (3.5-4.9) mmol/L Chloride 104 (98-109) mmol/L Carbon Dioxide 26 (24-29) mmol/L Anion Gap 11.1 BUN 14 Venous BUN (8-26) mg/dL Creatinine 0.55 (0.6-1.3) mg/dL Estimated GFR > 60.0 Glucose 148 H (70-105) mg/dL Calcium 9.4 Ionized Calcium (1.12-1.32) mmol/L Total Bilirubin 0.40 AST 32 ALT 29 Alkaline Phosphatase 137 H Troponin (0.00-0.03) ng/mL Troponin I < 0.012 (0.000-0.034) ng/mL NT-Pro-B Natriuret Pep 163 (0-450) pg/mL Serum Total Protein 7.4 Albumin 4.4 Influenza Type A Ag (NEGATIVE) Influenza Type B Ag (NEGATIVE) RSV (PCR) (Negative) SARS-CoV-2 (PCR) (NEGATIVE) 01/14/22 Range/Units 05:10 WBC (4.0-10.5) x10^3/uL RBC (4.1-5.4) x10^6/uL Hgb (12.0-16.0) g/dL Hct (35-47) % MCV (78-100) fL MCH (26-32) pg MCHC (32-36) g/dL RDW (11.5-14.0) % Plt Count (150-450) x10^3/uL MPV (7.5-11.0) fL Gran % (36.0-66.0) % Immature Gran % (Auto) (0.00-0.4) % Nucleat RBC Rel Count (0.00-0.1) % Eos # (Auto) (0-0.5) x10^3/uL Immature Gran # (Auto) (0.00-0.03) x10^3u/L Absolute Lymphs (auto) (1.0-4.6) x10^3/uL Absolute Monos (auto) (0.0-1.3) x10^3/uL Absolute Nucleated RBC (0.00-0.01) x10^3u/L Lymphocytes % (24.0-44.0) % Monocytes % (0.0-12.0) % Eosinophils % (0.00-5.0) % Basophils % (0.0-0.4) % Absolute Granulocytes (1.4-6.9) x10^3/uL Basophils # (0-0.4) x10^3/uL PT (9.4-12.5) SECONDS INR (0.8-3.0) APTT (25.1-36.5) SECONDS D-Dimer (0.0-0.50) mg/L Sodium 137 Sodium Direct (138-146) mmol/L Potassium 4.0 (3.5-4.9) mmol/L Chloride 105 (98-109) mmol/L Carbon Dioxide 24 (24-29) mmol/L Anion Gap 12.6 BUN 14 Venous BUN (8-26) mg/dL Creatinine 0.44 L (0.6-1.3) mg/dL Estimated GFR > 60.0 Glucose 176 H (70-105) mg/dL Calcium 8.5 Ionized Calcium (1.12-1.32) mmol/L Total Bilirubin 0.40 AST 24 ALT 25 Alkaline Phosphatase 119 Troponin (0.00-0.03) ng/mL Troponin I (0.000-0.034) ng/mL NT-Pro-B Natriuret Pep (0-450) pg/mL Serum Total Protein 7.0 Albumin 4.0 Influenza Type A Ag (NEGATIVE) Influenza Type B Ag (NEGATIVE) RSV (PCR) (Negative) SARS-CoV-2 (PCR) (NEGATIVE) - Radiology Impressions Radiology Exams & Impressions: Radiology Procedures Category Date Time Status CHEST 2 VIEWS (PA AND LAT) Routine Exams 01/15/22 07:00 Ordered CHEST WITH CONTRAST [CT] Stat Exams 01/13/22 17:52 Completed - Other Procedures and Tests Respiratory Therapy 01/13/22 22:14 Respiratory Therapy Assessment DAILY Assessment/Plan (1) Pneumonia Current Visit: Yes Status: Acute Qualifiers: Pneumonia type: due to unspecified organism Laterality: bilateral Lung location: lower lobe of lung Qualified Code(s): J18.9 - Pneumonia, unspecified organism Assessment & Plan: Treated with rocephin and zithromax in ER; she already finished a course of zithromax outpatient, so I have discontinued that. Will continue the rocephin, but if not materially better tomorrow will change to levaquin IV. Continue IV steroid at 125mg q6 for today (she is quite wheezy). Not on O2. Code(s): J18.9 - PNEUMONIA, UNSPECIFIED ORGANISM (2) Anxiety Current Visit: Yes Status: Chronic Assessment & Plan: acute on chronic. Increased xanax to 0.5mg po QID, just for this stay. May need something daily outpatient such as SSRI. Code(s): F41.9 - ANXIETY DISORDER, UNSPECIFIED (3) Insomnia Current Visit: Yes Status: Acute Qualifiers: Insomnia type: primary Qualified Code(s): F51.01 - Primary insomnia Assessment & Plan: try ambien tonight; could do trazodone if needed, or larger dose of BZD. Code(s): G47.00 - INSOMNIA, UNSPECIFIED (4) Back pain Current Visit: No Status: Acute Qualifiers: Back pain location: thoracic back pain Chronicity: chronic Back pain laterality: midline Qualified Code(s): M54.6 - Pain in thoracic spine; G89.29 - Other chronic pain Assessment & Plan: Added [facility], [facility] Added telemetry. Code(s): M54.9 - DORSALGIA, UNSPECIFIED
[2022-01-14] MEDS: LYRICA 100MG PO SCH ×2 (14:06→21:52)
[2022-01-14] MEDS: xanAX 0.5 MG PO SCH ×3 (14:06→21:52)
[2022-01-14] MEDS ORDERED: DIFLUCAN PO ONE (14:30)
[2022-01-14] MEDS: NORCO 5/325 MG PO PRN ×2 (14:44→21:59)
[2022-01-14] MEDS ORDERED: PREGABALIN 200 MG PO SCH (15:00)
[2022-01-14] MEDS: TORAdol 30 mg Injection IV PRN (19:04)
[2022-01-14] MEDS: Ambien 5 MG Tablet PO PRN (21:52)
[2022-01-14] MEDS ORDERED: ROCEPHIN 1 Gm-D5w 50 ml Bag** 1 G/50 ML IVPB IV SCH (22:00)
[2022-01-15] MEDS: solu-MEDROL 125 MG, Sterile H2O 10 ml 2 ML IV SCH ×8 (00:25→15:29)
[2022-01-15] MEDS: DUONEB 0.5-3 MG/3 ml Neb IH SCH ×6 (03:35→23:22)
[2022-01-15] MEDS: Sodium Chloride 0.9% 1000 ML 1,000 ML IV SCH ×2 (06:15→18:17)
[2022-01-15] MEDS: ENOXAPARIN SODIUM SQ SCH (09:11)
[2022-01-15] MEDS: PROTONIX 40 MG IV IV SCH (09:11)
[2022-01-15] MEDS: xanAX 0.5 MG PO SCH ×4 (09:11→21:34)
[2022-01-15] MEDS: LYRICA 100MG PO SCH ×3 (09:11→21:34)
[2022-01-15] MEDS: TORAdol 30 mg Injection IV PRN (09:26)
[2022-01-15] MEDS: NORCO 5/325 MG PO PRN (10:48)
[2022-01-15] MEDS ORDERED: solu-MEDROL 60 MG, Sterile H2O 10 ml 1 ML IV SCH ×2 (14:00)
[2022-01-15] MEDS: TYLENOL 325 MG PO PRN ×2 (15:21→21:41)
[2022-01-15] MEDS: NICODERM CQ 14 MG TOP SCH (15:21)
[2022-01-15] MEDS: Levofloxacin 500MG/100ML D5W 500 MG/100 ML BAG IV SCH (15:21)
[2022-01-15] MEDS: solu-MEDROL 60 MG, Sterile H2O 10 ml 2 ML IV SCH ×4 (15:22→21:34)
--- NOTE | 2022-01-15 16:02 | PCM.NOTE ---
Date and Time: 01/15/22 1556 Subjective Assessment: She is having headache, behind her eyes and at her temples, started yesterday and she thought it would improve with sleep but it didn't. She usually drinks several caffeinated drinks during the day but hasn't been drinking any since admission. She thinks she'd feel about "40% better" without her head hurting. Not on O2. Feels like she's starting to have productive cough. Anxiety is much better. - Review of Systems Constitutional: No Fever Respiratory: Cough, Short Of Breath Cardiac: Palpitations (had a few palpitations, states she has these when she's in pain sometimes) Objective Exam General Appearance: no apparent distress, alert Neurologic Exam: oriented x 3, cooperative Skin Exam: normal color, warm, dry, No rash Eye Exam: eyes nml inspection Ears, Nose, Throat Exam: moist mucous membranes Neck Exam: normal inspection Respiratory Exam: rhonchi (bilat bases), No crackles/rales, No wheezing Cardiovascular Exam: regular rate/rhythm, normal heart sounds, No murmur Extremity Exam: normal inspection, No pedal edema, No swelling OBJECTIVE DATA Vital Signs: Vital Signs - 24 hr Temp Pulse Resp BP Pulse Ox 01/15/22 15:29 100 H 20 92 L 01/15/22 12:00 98.2 F 109 H 24 164/104 94 L 01/15/22 11:25 94 H 20 95 01/15/22 08:00 97.5 F 96 H 19 135/85 91 L 01/15/22 07:27 95 H 18 94 L 01/15/22 04:00 96.9 F 93 H 17 137/85 91 L 01/15/22 03:37 94 H 17 91 L 01/15/22 00:25 97.7 F 100 H 16 127/78 91 L 01/14/22 23:59 100 H 16 91 L 01/14/22 20:28 87 17 96 01/14/22 20:00 97.4 F 91 H 18 160/86 92 L 01/14/22 17:34 91 H 18 96 Pain Assessment - Last Documented Pain Intensity 2 Pain Scale Used 0-10 Pain Scale Intake and Output: Intake & Output 01/13/22 01/14/22 01/15/22 01/16/22 11:59 11:59 11:59 11:59 Intake Total 598 1000 240 Output Total 300 300 Balance 298 700 240 Weight 75.1 kg 75.1 kg Radiology Exams: Radiology Procedures Category Date Time Status CHEST 2 VIEWS (PA AND LAT) Routine Exams 01/15/22 07:00 Taken CHEST WITH CONTRAST [CT] Stat Exams 01/13/22 17:52 Completed Assessment/Plan (1) Pneumonia Current Visit: Yes Status: Acute Qualifiers: Pneumonia type: due to unspecified organism Laterality: bilateral Lung location: lower lobe of lung Qualified Code(s): J18.9 - Pneumonia, unspecified organism Assessment & Plan: change rocephin to levaquin. decrease steroid from 126mg q6h to 60mg q8h. May be able to discharge to home tomorrow on po levaquin and po steroid. Will need neb machine and albuterol. Code(s): J18.9 - PNEUMONIA, UNSPECIFIED ORGANISM (2) Headache Current Visit: Yes Status: Acute Qualifiers: Headache type: unspecified Headache chronicity pattern: acute headache Intractability: intractable Qualified Code(s): R51.9 - Headache, unspecified Assessment & Plan: I think likely to be related to caffeine intake; she is drinking caffeine now, if the LIU does not resolve would try some compazine. She started several new meds; stopped the norco, decreased steroid, stopped lovenox, and decreased nicotine patch from 21 to 14mg/d. Code(s): R51.9 - HEADACHE, UNSPECIFIED (3) Anxiety Current Visit: Yes Status: Chronic Assessment & Plan: improved Code(s): F41.9 - ANXIETY DISORDER, UNSPECIFIED (4) Insomnia Current Visit: Yes Status: Acute Qualifiers: Insomnia type: primary Qualified Code(s): F51.01 - Primary insomnia Code(s): G47.00 - INSOMNIA, UNSPECIFIED (5) Back pain Current Visit: No Status: Acute Qualifiers: Back pain location: thoracic back pain Chronicity: chronic Back pain laterality: midline Qualified Code(s): M54.6 - Pain in thoracic spine; G89.29 - Other chronic pain Code(s): M54.9 - DORSALGIA, UNSPECIFIED
--- NOTE | 2022-01-15 17:57 | XRAY ---
Indication: Cough and short of breath. Comparison: January 13, 2022 PA/central chest demonstrates new left mid to lower lung subsegmental atelectasis/scarring. Remaining heart, right lung, and bony thorax normal. Comment: Preliminary interpretation made by [facility]. No critical discrepancy.
[2022-01-15] MEDS: HYDROCODONE-CHLORPHEN ER SUSP PO PRN (18:20)
[2022-01-15] MEDS: Ambien 5 MG Tablet PO PRN (21:33)
[2022-01-16] MEDS: DUONEB 0.5-3 MG/3 ml Neb IH SCH ×3 (03:03→10:45)
[2022-01-16] MEDS: Sodium Chloride 0.9% 1000 ML 1,000 ML IV SCH (04:26)
[2022-01-16] MEDS: solu-MEDROL 60 MG, Sterile H2O 10 ml 2 ML IV SCH ×2 (06:35)
[2022-01-16] MEDS: LYRICA 100MG PO SCH (07:55)
[2022-01-16] MEDS: Levofloxacin 500MG/100ML D5W 500 MG/100 ML BAG IV SCH (07:55)
[2022-01-16] MEDS: PROTONIX 40 MG IV IV SCH (07:55)
[2022-01-16] MEDS: xanAX 0.5 MG PO SCH (07:55)
[2022-01-16] MEDS: NICODERM CQ 14 MG TOP SCH (07:55)
[2022-01-16 08:25] VITALS: BP 166/105
--- NOTE | 2022-01-16 09:26 | PCM.DS ---
Discharge Summary Date of Admission: 01/13/22 21:41 Admitting Physician: RAHEEM MACEDO Primary Care Provider: NO FAMILY DOCTOR Allergies Allergies No Known Drug Allergies Allergy (Verified 01/13/22 15:47) Hospital Summary - Hospital Course Hospital Course: Pt is a 41 yo pt of Lucy Alberto who was admitted through ER with PNA. She had 2 d of IV rocephin with minimal improvement; started levaquin yesterday and clinically improved today. Had LIU yesterday but it's now resolved. She c/o no sleeping, was given ambien 5mg and it helped immensely (although she is tired this morning). Did not require O2 during her stay. Will be sent home on levaquin, prednisone, and nebulizers. F/u in 1 week. - Vitals & Intake/Output Vital Signs: Vital Signs Temperature 97.1 F 01/16/22 08:00 Pulse Rate 90 01/16/22 08:00 Respiratory Rate 19 01/16/22 08:00 Blood Pressure 166/105 01/16/22 08:00 O2 Sat by Pulse Oximetry 91 L 01/16/22 08:00 Intake & Output: Intake & Output 01/13/22 01/14/22 01/15/22 01/16/22 11:59 11:59 11:59 11:59 Intake Total 598 1000 2845 Output Total 300 300 Balance 598 576 5810 Weight 75.1 kg 75.1 kg - Lab Result Diagrams: 01/14/22 05:10 01/14/22 05:10 Micro Results-Entire Visit: Microbiology 01/13/22 21:45 Blood Culture - Preliminary Blood NO GROWTH TO DATE 01/13/22 21:00 Blood Culture - Preliminary Blood NO GROWTH TO DATE - Radiology Exams Ordered Rad Exams-Entire Visit: Radiology Procedures Category Date Time Status CHEST 2 VIEWS (PA AND LAT) Routine Exams 01/15/22 07:00 Completed - Procedures and Test Procedures and Tests throughout Hospitalization: Therapy Orders & Screens 01/13/22 16:44 Respiratory Therapy Assessment DAILY Comment: 01/13/22 22:14 Respiratory Therapy Assessment DAILY Comment: Diagnosis: Pneumonia 01/13/22 23:09 Smoking Cessation Education ONCE Comment: Diagnosis: Pneumonia Smoking Status: Current every day smoker How long have you smoked: 16 years Have you smoked in the past 12 months: Yes Approximately how many cigarettes per day: 20 Do you dip or chew tobacco: No Discharge Exam General Appearance: no apparent distress, alert Neurologic Exam: oriented x 3, cooperative Eye Exam: eyes nml inspection Ears, Nose, Throat Exam: moist mucous membranes Neck Exam: normal inspection Respiratory Exam: normal breath sounds, rhonchi (bilat bases, minimally decreased from yesterday particularly on the R), No crackles/rales, No wheezing Cardiovascular Exam: regular rate/rhythm, normal heart sounds, No murmur Gastrointestinal/Abdomen Exam: soft, normal bowel sounds, No tenderness, No distention, No mass, No guarding, No rebound Back Exam: normal inspection, No rash Extremity Exam: normal inspection, No pedal edema, No swelling Skin Exam: normal color, warm, dry, No rash Final Diagnosis/Problem List - Final Discharge Diagnosis/Problem (1) Pneumonia Current Visit: Yes Status: Acute Assessment & Plan: improved; home on levaquin to finish 10d total. Discussed risk of musculoskeletal side effects particularly Achilles tendon issues. Probiotic and prednison, with nebs as well. Code(s): J18.9 - PNEUMONIA, UNSPECIFIED ORGANISM (2) Headache Current Visit: Yes Status: Resolved Code(s): R51.9 - HEADACHE, UNSPECIFIED (3) Anxiety Current Visit: Yes Status: Chronic Code(s): F41.9 - ANXIETY DISORDER, UNSPECIFIED (4) Insomnia Current Visit: Yes Status: Chronic Code(s): G47.00 - INSOMNIA, UNSPECIFIED (5) Back pain Current Visit: No Status: Chronic Code(s): M54.9 - DORSALGIA, UNSPECIFIED - Discharge Disposition: Home, Self-Care Condition: Good Prescriptions: New Lactobacillus Acidophilus [Acidophilus TABLET] 1 tab PO BID 8 Days #16 tablet Zolpidem Tartrate 5 mg [Ambien 5 MG Tablet] 5 mg PO QHS PRN #15 tab PRN Reason: Insomnia Prednisone 20 mg [Deltasone 20 mg] 20 mg PO DAILY #17 tablet Hydrocodone/Chlorphen P-Stirex [Hydrocodone-Chlorph ER Susp (TUSSIONEX)] 5 ml PO [id number] PRN #115 MDD 10 ML PRN Reason: Cough Levofloxacin [Levofloxacin 500 MG Tablet] 500 mg PO DAILY #8 tablet Nicotine 14 mg [Nicoderm Cq 14 mg] 14 mg TOP Q24H10 #30 patch Albuterol 2.5 mg/3 ml Neb [Proventil 2.5 mg/3 ml Neb] 2.5 mg IH QID #28 unit Continue Pregabalin 200 mg PO TID Follow up with: DOCTOR,NO FAMILY [Primary Care Provider] -
[2022-01-16 10:49] VITALS: PULSE 100; O2SAT 96
== END 2022-01-16 10:30 | disposition home or self-care (01) | DRG 195 ==
LOC: ED 15:45 → MED SURG 21:41 → OBSVTOIN 21:41
PROVIDERS: ADMIT Family Medicine; ATTEND Family Medicine
DX: J18.9 Pneumonia, unspecified organism (principal); R51.9 Headache, unspecified; F41.9 Anxiety disorder, unspecified; G47.00 Insomnia, unspecified; M54.9 Dorsalgia, unspecified; Z79.899 Other long term (current) drug therapy; Z20.828 Contact with and (suspected) exposure to other viral communicable diseases; Z72.0 Tobacco use
CPT/HCPCS: 0241U; 36000; 36415; 71046; 71260; 80047; 80053; 83880; 84484; 85025; 85379; 85610; 85730; 87040; 94640; 94760; 96365; 96374; 96375; 99285; J0456; J0696; J1650; J1885; J1956; J2930; J7609; A9270-GY

== ENCOUNTER 2023-02-11 20:30 | Emergency (ER) | payer BC ==
--- NOTE | 2023-02-11 20:38 | ERPHSYRPT ---
- History of Present Illness Time Seen by Provider: 02/11/23 20:37 Source: patient, family Exam Limitations: no limitations Physician History: pt has depression and has had substance use problems and is seeking help tonight. No suicidal or homicidal ideations. No Hx trauma. Has lupus treated and controlled on plaquinil. No vascular complications or antphospholipid syndrome in her Hx that she knows of. Discussed risks and benfits of testing - CBC, EKG, CMP, US, ETOH, Se, ACeto, Drug screen, and telemental with pt and mom and they wish to proceed. these are ordered, results discussed later. Mom is present in ER and is interviewed as independent confirmation source for Hx. Normal neuro exam. Fundi benign. Chest clear Ht reg with mid syst click - pt has MVP known. Abd soft nontender without peritoneal signs of masses or distension. pt is seeing PMD and placed on initial meds to help. Timing/Duration: today Severity of Symptoms-Max: moderate Severity of Symptoms-Current: moderate Context related to: other (medical and substance use) Associated Symptoms: anxiety, depressed Previous symptoms: same symptoms as today, recently seen, recently treated Allergies/Adverse Reactions: No Known Drug Allergies Allergy (Verified 01/13/22 15:47) Home Medications: Pregabalin 200 mg PO TID 01/13/22 [History] Hx Tetanus, Diphtheria Vaccination/Date Given: Yes Hx Influenza Vaccination/Date Given: No Hx Pneumococcal Vaccination/Date Given: No Travel Risk - Vaccine Status Have you recieved a Covid-19 vaccination: Yes 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[employer] - Vaccination Dates Date of 2cond Vaccination (if applicable): na - Past Medical History Pertinent Past Medical History: Yes Neurological History: No Pertinent History ENT History: No Pertinent History Cardiac History: Other Respiratory History: No Pertinent History Endocrine Medical History: Other Musculoskeletal History: Degenerative Disk Disease, Other GI Medical History: No Pertinent History History: No Pertinent History Psycho-Social History: No Pertinent History Female Reproductive Disorders: No Pertinent History Other Medical History: Adrenal gland tumor - Past Surgical History Past Surgical History: Yes Neuro Surgical History: No Pertinent History Cardiac: No Pertinent History Respiratory: No Pertinent History Gastrointestinal: No Pertinent History Genitourinary: No Pertinent History Musculoskeletal: No Pertinent History Female Surgical History: Tubal Ligation Other Surgical History: ADRENAL GLAND REMOVAL - Social History Smoking Status: Current every day smoker How long have you smoked: years Exposure to second hand smoke: Yes Drug Use: none Patient Lives Alone: No Significant Family History: no pertinent family hx - Review of Systems Constitutional: No Fever, No Chills Eyes: No Symptoms Ears, Nose, & Throat: No Symptoms Respiratory: No Cough, No Dyspnea Cardiac: No Chest Pain, No Edema, No Syncope Abdominal/Gastrointestinal: No Abdominal Pain, No Nausea, No Vomiting, No Diarrhea Genitourinary Symptoms: No Dysuria Musculoskeletal: Joint Pain (chronic), No Back Pain, No Neck Pain Skin: No Rash Neurological: No Dizziness, No Focal Weakness, No Sensory Changes Psychological: Alcohol Abuse, Drug Abuse, Anxiety, Depression, No Suicidal Ideations, No Homicidal Ideations Endocrine: No Symptoms Hematologic/Lymphatic: No Symptoms Immunological/Allergic: Eczema All Other Systems: Reviewed and Negative - Nursing Vital Signs Nursing Vital Signs: Initial Vital Signs Temperature 98.6 F 02/11/23 20:44 Pulse Rate 113 H 02/11/23 20:44 Respiratory Rate 22 02/11/23 20:44 Blood Pressure 143/99 02/11/23 20:44 O2 Sat by Pulse Oximetry 95 02/11/23 20:44 Pain Scale Pain Intensity 0 - Physical Exam General Appearance: mild distress, alert, anxiety Eyes, Ears, Nose, Throat Exam: normal ENT inspection, TMs normal, moist mucous membranes Neck Exam: normal inspection, non-tender, supple Respiratory Exam: normal breath sounds, lungs clear, No respiratory distress Cardiovascular Exam: regular rate/rhythm, No edema Gastrointestinal/Abdominal Exam: soft, No tenderness, No distention Extremities Exam: normal inspection, normal range of motion, No evidence of injury, No edema Peripheral Pulses: carotid (R): 2+, carotid (L): 2+, femoral (R): 2+, femoral (L): 2+, dorsalis-pedis (R): 2+, dorsalis-pedis (L): 2+ Current Suicidality: denies suicide plan Neurological Exam: alert, neurosurgery physician II-XII nml as tested, oriented x 3, anxious, depressed affect Appearance: appropriate appearance, appropriate insight, no memory impairment Behavior/Eye Contact/Speech: alert & cooperative, normal speech, avoids eye contact Thoughts/Hallucinations: normal thought pattern, no apparent hallucination Skin Exam: normal color, warm, dry, No rash SpO2 Interpretation: normal SpO2: 96 O2 Delivery: Room Air - Course Nursing assessment & vital signs reviewed: Yes Ordered Tests: Active Orders 24 hr Category Date Time Status EKG-ER Only STAT Care 02/11/23 22:29 Active Pulse Oximetry (ED) STAT Care 02/11/23 22:26 Active Tele-Health Consult ROUTINE Cons 02/11/23 22:26 Active ACETAMINOPHEN Stat Lab 02/11/23 22:26 Ordered CBC W DIFF Stat Lab 02/11/23 22:26 Ordered CMP Stat Lab 02/11/23 22:26 Ordered ETHYL ALCOHOL Stat Lab 02/11/23 22:26 Ordered HCG QUALITATIVE, SERUM Stat Lab 02/11/23 Ordered Lactic Acid Stat Lab 02/11/23 22:26 Ordered SALICYLATE Stat Lab 02/11/23 22:26 Ordered T4 (Thyroxine) Stat Lab 02/11/23 Ordered TSH [TSH, 3RD Generation] Stat Lab 02/11/23 22:30 Ordered UA W/RFX UR CULTURE Stat Lab 02/11/23 22:32 Ordered Medication Summary Discontinued Medications Generic Name Dose Route Start Last Admin Trade Name Joaquin PRN Reason Stop Dose Admin Lorazepam 1 mg 02/11/23 22:29 Lorazepam 1 Mg Tablet PO 02/11/23 22:30 STAT ONE - Progress Progress: improved, re-examined Progress Note: 02/11/23 22:48 discussed with pt and mother and daughter and all confirm no suicidal ideations at all - pt only came to explore options for f/u but has since arranged to see t herapist and will see PMD tomorrow and has made a contract with us to return or seek immediate support and help if she does develope any thoughts of harm or even feels overwhelmed . SHe has a normal mental status and no current signs of intoxication or drug effect and has the capacity to make this choice and does who mother who supports this choice. they wish to decline the telemental and labs and these do not appear to be indicated at this time any longer. 02/11/23 22:51 Counseled pt/family regarding: lab results, diagnosis, need for follow-up Medical Desision Making - Independent Historian Additional History obtained from: Mother - Discussion of managment Care discussed with:: specialist Reviewed:: Test results, Need for additional workup Agreed on:: Treatment plan, need for follow-up - Diagnostic Testing Diagnostic test were ordered, analyzed, and reviewed by me: Yes - Risk of complications The pt has a high risk of morbidity or mortality based on: Decision regarding hospitilization or escalation of hosp level of care - Departure Departure Disposition: Home Clinical Impression: Anxiety, hx substance use treated by PMD, No current objective evidence for SIHI Condition: Good Critical Care Time: No Referrals: RONIT OLSEN MD [Primary Care Provider] - Follow up/PCP as directed Instructions: Depression, Adult (DC), Anxiety, Adult (DC), Alcohol Use Disorder (DC) Additional Instructions: followup with your Dr. and therapist tomorrow and return if you encounter any bad thoughts meantime or amytime you feel like you need more support.
[2023-02-11 21:09] VITALS: BP 143/99; PULSE 113; RESP 22; TEMP 98.6
[2023-02-11 22:26] VITALS: O2SAT 96
[2023-02-11] MEDS ORDERED: Ativan 1 MG PO ONE (22:29)
== END 2023-02-11 23:00 | disposition home or self-care (01) ==
LOC: ED 20:30
DX: F41.9 Anxiety disorder, unspecified (principal); F19.11 Other psychoactive substance abuse, in remission; Z79.899 Other long term (current) drug therapy
CPT/HCPCS: 99281

== ENCOUNTER 2024-06-12 03:48 | Emergency (ER) | payer BC ==
--- NOTE | 2024-06-12 04:04 | ERPHSYRPT ---
- History of Present Illness Time Seen by Provider: 06/12/24 04:03 Historian: patient Exam Limitations: no limitations Physician History: 43-year-old female history of lupus presents to emergency department for evaluation of nausea vomiting diarrhea generalized abdominal pain however somewhat worse in the epigastrium. 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 No trauma no fever. Patient's last bowel movement was approximately an hour prior to arrival. Stool is nonbloody nonbilious. Symptoms are constant. Symptoms are moderate in intensity. No specific worsening or improving factors. Patient otherwise feels well. She voices no other complaints or concerns at this time. No associated chest pain or shortness of breath. Portions of this note were created with voice recognition technology. There may be grammatical, spelling, punctuation or sound alike errors Timing/Duration: today Activities at Onset: none Quality: aching Abdominal Pain Onset Location: generalized abdomen (Generalized abdominal pain however symptoms are more pronounced in the epigastrium region of her abdomen) Severity of Pain-Max: moderate Severity of Pain-Current: mild Modifying Factors: Improves With: nothing Associated Symptoms: denies symptoms Previous symptoms: no prior history Allergies/Adverse Reactions: No Known Drug Allergies Allergy (Verified 06/12/24 04:07) Home Medications: Pregabalin 300 mg PO BID 01/13/22 [History] clonazePAM [Clonazepam] 0.5 mg PO DAILY PRN PRN 06/12/24 [History] Hx Tetanus, Diphtheria Vaccination/Date Given: Yes Hx Influenza Vaccination/Date Given: No Hx Pneumococcal Vaccination/Date Given: No - Review of Systems Constitutional: No Symptoms, No Fever, No Chills Eyes: No Symptoms Ears, Nose, & Throat: No Symptoms Respiratory: No Symptoms, No Cough, No Dyspnea Cardiac: No Symptoms, No Chest Pain, No Edema, No Syncope Abdominal/Gastrointestinal: No Symptoms, No Abdominal Pain, No Nausea, No Vomiting, No Diarrhea Genitourinary Symptoms: No Symptoms, No Dysuria Musculoskeletal: No Symptoms, No Back Pain, No Neck Pain Skin: No Symptoms, No Rash Neurological: No Symptoms, No Dizziness, No Focal Weakness, No Sensory Changes Psychological: No Symptoms Endocrine: No Symptoms Hematologic/Lymphatic: No Symptoms Immunological/Allergic: No Symptoms All Other Systems: Reviewed and Negative - Past Medical History Pertinent Past Medical History: Yes Neurological History: No Pertinent History ENT History: No Pertinent History Cardiac History: Other Respiratory History: No Pertinent History Endocrine Medical History: Other Musculoskeletal History: Degenerative Disk Disease, Other GI Medical History: No Pertinent History History: No Pertinent History Psycho-Social History: No Pertinent History Female Reproductive Disorders: No Pertinent History Other Medical History: Adrenal gland tumor - Past Surgical History Past Surgical History: Yes Neuro Surgical History: No Pertinent History Cardiac: No Pertinent History Respiratory: No Pertinent History Gastrointestinal: No Pertinent History Genitourinary: No Pertinent History Musculoskeletal: No Pertinent History Female Surgical History: Tubal Ligation Other Surgical History: ADRENAL GLAND REMOVAL Significant Family History: no pertinent family hx - Female History Hx Last Menstrual Period: DEPO-SHOT Hx Now: No - Social History Smoking Status: Current every day smoker How long have you smoked: years Exposure to second hand smoke: Yes Drug Use: none Patient Lives Alone: No - Nursing Vital Signs Nursing Vital Signs: Initial Vital Signs Temperature 96.6 F 06/12/24 03:52 Pulse Rate 87 06/12/24 03:52 Respiratory Rate 22 06/12/24 03:52 Blood Pressure 137/89 06/12/24 03:52 O2 Sat by Pulse Oximetry 99 06/12/24 03:52 Pain Scale Pain Intensity 3 - Physical Exam General Appearance: no apparent distress, alert Eye Exam: PERRL/EOMI, eyes nml inspection Ears, Nose, Throat Exam: normal ENT inspection, pharynx normal, moist mucous membranes Neck Exam: normal inspection, full range of motion Respiratory Exam: normal breath sounds, lungs clear, No respiratory distress Cardiovascular Exam: regular rate/rhythm, normal heart sounds Gastrointestinal/Abdomen Exam: soft, No tenderness, No mass Back Exam: normal inspection, normal range of motion, No CVA tenderness, No vertebral tenderness Extremity Exam: normal inspection, normal range of motion, pelvis stable Neurologic Exam: alert, oriented x 3, cooperative, normal mood/affect, nml cerebellar function, nml station & gait, sensation nml, No motor deficits Skin Exam: normal color, warm, dry SpO2 Interpretation: normal SpO2: 99 O2 Delivery: Room Air - Course Nursing assessment & vital signs reviewed: Yes - CT Exams Abdomen/Pelvis CT Interpretation: Tele-radiologist Report (No acute intra-abdominal pathology) Ordered Tests: Active Orders 24 hr Category Date Time Status IV Insertion STAT Care 06/12/24 03:58 Active ABDOMEN AND PELVIS W/0 CONTRAS [CT] Stat Exams 06/12/24 03:59 Completed CBC W DIFF Stat Lab 06/12/24 04:08 Completed CMP Stat Lab 06/12/24 04:08 Completed HCG QUALITATIVE, SERUM Stat Lab 06/12/24 04:28 Completed LIPASE Stat Lab 06/12/24 04:08 Completed Manual Differential NC Stat Lab 06/12/24 04:08 Completed UA W/RFX UR CULTURE Stat Lab 06/12/24 05:29 Completed Medication Summary Discontinued Medications Generic Name Dose Route Start Last Admin Trade Name Joaquin PRN Reason Stop Dose Admin Sodium Chloride 1,000 mls @ 999 mls/hr 06/12/24 03:58 06/12/24 05:23 Sodium Chloride 0.9% 1000 Ml IV 06/12/24 04:58 Infused .Q1H1M STA Infusion Sodium Chloride Confirm 06/12/24 04:08 Sodium Chloride 0.9% 1000 Ml Administered 06/12/24 04:09 Dose 1,000 mls @ ud .ROUTE .STK-MED ONE Morphine Sulfate 4 mg 06/12/24 03:58 06/12/24 04:10 Morphine Sulfate 4 Mg/Ml Injection IV 06/12/24 03:59 4 mg STAT ONE Administration Morphine Sulfate Confirm 06/12/24 04:07 Morphine Sulfate 4 Mg/Ml Injection Administered 06/12/24 04:08 Dose 4 mg .ROUTE .STK-MED ONE Ondansetron HCl 4 mg 06/12/24 03:58 06/12/24 04:10 Ondansetron Hcl 4 Mg/2 Ml Vial IV 06/12/24 03:59 4 mg STAT ONE Administration Ondansetron HCl Confirm 06/12/24 04:07 Ondansetron Hcl 4 Mg/2 Ml Vial Administered 06/12/24 04:08 Dose 4 mg .ROUTE .STK-MED ONE Lab/Rad Data: Laboratory Result Diagrams 06/12/24 04:08 06/12/24 04:08 Laboratory Results 06/12/24 06/12/24 06/12/24 Range/Units 05:29 04:28 04:26 WBC (3.98-10.04) x10^3/uL RBC (3.93-5.22) x10^6/uL Hgb (11.2-15.7) g/dL Hct (34.1-44.9) % MCV (79.4-94.8) fL MCH (25.6-32.2) pg MCHC (32.2-35.5) g/dL RDW (11.7-14.4) % Plt Count (182-369) x10^3/uL MPV (9.4-12.3) fL Segmented Neutrophils (34.0-71.1) % Band Neutrophils (0.0-2.0) % Lymphocytes (Manual) (19.3-51.7) % Monocytes (Manual) (4.7-12.5) % Atypical Lymphocytes % Platelet Estimate (NORMAL) RBC Morphology Sodium (135-145) mmol/L Potassium (3.5-5.1) mmol/L Chloride (98-107) mmol/L Carbon Dioxide (22-30) mmol/L Anion Gap (5-15) MEQ/L BUN (7-17) mg/dL Creatinine (0.52-1.04) mg/dL Estimated GFR ML/MIN Glucose (74-106) mg/dL Calcium (8.4-10.2) mg/dL Total Bilirubin (0.2-1.3) mg/dL AST (14-36) U/L ALT (0-35) U/L Alkaline Phosphatase (38-126) U/L Serum Total Protein (6.3-8.2) g/dL Albumin (3.5-5.0) g/dL Lipase (23-300) U/L Serum HCG, Qual NEGATIVE (NEGATIVE) Urine Color Yellow (Yellow) Urine Appearance Clear (Clear) Urine pH 7.0 (4.6-8.0) Ur Specific Happy <=1.005 (1.005-1.030) Urine Protein Negative (Negative) Urine Glucose (UA) Negative (Negative) mg/dL Urine Ketones Trace A (Negative) Urine Blood Negative (Negative) Urine Nitrite Negative (Negative) Urine Bilirubin Negative (Negative) Urine Urobilinogen 0.2 (0.2) mg/dL Ur Leukocyte Esterase Negative (Negative) U Hyaline Cast (Auto) NONE SEEN (0-2) /LPF Urine Microscopic RBC 0-2 (0-5) /HPF Urine Microscopic WBC 0-2 (0-5) /HPF Ur Epithelial Cells None Seen (None Seen) /HPF Urine Bacteria None Seen (None Seen) /HPF Urine Culture Reflexed NO (NO) Influenza Type A Ag POSITIVE A (NEGATIVE) Influenza Type B Ag NEGATIVE (NEGATIVE) RSV (PCR) NEGATIVE (NEGATIVE) SARS-CoV-2 (PCR) NEGATIVE (NEGATIVE) 06/12/24 06/12/24 Range/Units 04:08 04:08 WBC 4.1 (3.98-10.04) x10^3/uL RBC 5.36 H (3.93-5.22) x10^6/uL Hgb 15.9 H (11.2-15.7) g/dL Hct 47.2 H (34.1-44.9) % MCV 88.1 (79.4-94.8) fL MCH 29.7 (25.6-32.2) pg MCHC 33.7 (32.2-35.5) g/dL RDW 12.0 (11.7-14.4) % Plt Count 160 L (182-369) x10^3/uL MPV 10.9 (9.4-12.3) fL Segmented Neutrophils 13 L (34.0-71.1) % Band Neutrophils 5 H (0.0-2.0) % Lymphocytes (Manual) 54 H (19.3-51.7) % Monocytes (Manual) 7 (4.7-12.5) % Atypical Lymphocytes 21 % Platelet Estimate NORMAL (NORMAL) RBC Morphology NORMAL Sodium 138 (135-145) mmol/L Potassium 3.5 (3.5-5.1) mmol/L Chloride 102 (98-107) mmol/L Carbon Dioxide 26 (22-30) mmol/L Anion Gap 14.4 (5-15) MEQ/L BUN 7 (7-17) mg/dL Creatinine 0.70 (0.52-1.04) mg/dL Estimated GFR 109.3 ML/MIN Glucose 118 H (74-106) mg/dL Calcium 9.3 (8.4-10.2) mg/dL Total Bilirubin 0.60 (0.2-1.3) mg/dL AST 53 H (14-36) U/L ALT 42 H (0-35) U/L Alkaline Phosphatase 87 (38-126) U/L Serum Total Protein 7.8 (6.3-8.2) g/dL Albumin 4.8 (3.5-5.0) g/dL Lipase 69 (23-300) U/L Serum HCG, Qual (NEGATIVE) Urine Color (Yellow) Urine Appearance (Clear) Urine pH (4.6-8.0) Ur Specific Happy (1.005-1.030) Urine Protein (Negative) Urine Glucose (UA) (Negative) mg/dL Urine Ketones (Negative) Urine Blood (Negative) Urine Nitrite (Negative) Urine Bilirubin (Negative) Urine Urobilinogen (0.2) mg/dL Ur Leukocyte Esterase (Negative) U Hyaline Cast (Auto) (0-2) /LPF Urine Microscopic RBC (0-5) /HPF Urine Microscopic WBC (0-5) /HPF Ur Epithelial Cells (None Seen) /HPF Urine Bacteria (None Seen) /HPF Urine Culture Reflexed (NO) Influenza Type A Ag (NEGATIVE) Influenza Type B Ag (NEGATIVE) RSV (PCR) (NEGATIVE) SARS-CoV-2 (PCR) (NEGATIVE) - Progress Progress: improved Progress Note: 43-year-old female presents to emergency department for evaluation of nausea vomiting and diarrhea. Physical exam reveals generalized abdominal tenderness. Laboratory workup essentially nonremarkable. Viral panel significant for influenza A. Urinalysis negative for UTI. CT abdomen pelvis negative for acute intraabdominal pathology. Patient received IV hydration. Morphine administe red for pain control. Nausea and vomiting was treated with Zofran. Patient reassessed. She feels much better. No active abdominal pain. Patient tolerating p.o. Patient states she is ready for discharge. No indication for further workup at this time. Will discharge home. Patient agrees to follow-up with her primary care doctor within 48 hours for reevaluation. A prescription for Zofran forwarded to patient's pharmacy. Patient voices no other complaints or concerns at this time. Portions of this note were created with voice recognition technology. There may be grammatical, spelling, punctuation or sound alike errors Complexity of problem addressed is moderate acute complicated. No critical care time. Complex of data reviewed and analyzed is moderate. Test ordered test reviewed results analyzed and correlated clinically with history and physical exam. Risk of complication and or risk of morbidity/mortality of patient management is moderate. A prescription for Zofran forwarded to patient's pharmacy. Vital stable. Time spent to discharge patient is approximately 15 minutes. Plan of care established for shared decision making. No social determinants of health present to impede follow-up. Portions of this note were created with voice recognition technology. There may be grammatical, spelling, punctuation or sound alike errors 06/12/24 06:06 Counseled pt/family regarding: lab results, diagnosis, need for follow-up, rad results - Departure Departure Disposition: Home Clinical Impression: Influenza A, Nausea vomiting and diarrhea Condition: Stable Critical Care Time: No Referrals: DEYANIRA GONZALEZ MD [Primary Care Provider] - Follow up/PCP as directed Additional Instructions: Discharge/Care Plan AZRA WALKER was seen on 06/12/24 in the Emergency Room. The patient was counseled regarding Diagnosis,Lab results, Imaging studies, need for follow up and when to return to the Emergency Room. Prescriptions given: Discharge Note I have spoken with the patient and/or caregivers. I have explained the patient's condition, diagnosis and treatment plan based on the information available to me at this time. I have answered the patient's and/or caregiver's questions and addressed any concerns. The patient and/or caregivers have as good understanding of the patient's diagnosis, condition and treatment plan as can be expected at this point. The vital signs have been stable. The patient's condition is stable and appropriate for discharge from the emergency department. The patient will pursue further outpatient evaluation with the primary care physician or other designated or consulting physician as outlined in the discharge instructions. The patient and/or caregivers are agreeable to this plan of care and follow-up instructions have been explained in detail. The patient and/or caregivers have received these instruction. The patient/and or caregivers are aware that any significant change in condition or worsening of symptoms should prompt an immediate return to this or the closest emergency department or call 911. Prescriptions: Ondansetron ODT 4 MG [Zofran Odt 4 mg] 4 mg PO Q6H PRN PRN #10 tablet PRN Reason: Vomiting
[2024-06-12 04:07] VITALS: TEMP 96.6
[2024-06-12] MEDS ORDERED: MORPHINE SULFATE 4 MG INJ ONE (04:07)
[2024-06-12] MEDS ORDERED: Zofran 4 MG/2 ML VIAL ONE (04:07)
[2024-06-12] MEDS ORDERED: Sodium Chloride 0.9% 1000 ML 1,000 ML ONE (04:08)
[2024-06-12] MEDS: Zofran 4 MG/2 ML VIAL IV ONE (04:10)
[2024-06-12] MEDS: Sodium Chloride 0.9% 1000 ML 1,000 ML IV STA (04:10)
[2024-06-12] MEDS: MORPHINE SULFATE 4 MG INJ IV ONE (04:10)
[2024-06-12 04:11] LABS: Hematocrit 47.2 % (34.1-44.9); Hemoglobin 15.9 g/dL (11.2-15.7); Mean Cell Volume 88.1 fL (79.4-94.8); Mean Corpuscular Hemoglobin 29.7 pg (25.6-32.2); Mean Corpuscular Hgb Concent. 33.7 g/dL (32.2-35.5); Mean Platelet Volume 10.9 fL (9.4-12.3); Platelet Count 160 x10^3/uL (182-369); Red Blood Count 5.36 x10^6/uL (3.93-5.22); White Blood Count 4.1 x10^3/uL (3.98-10.04)
[2024-06-12 04:25] LABS: ALBUMIN 4.8 g/dL (3.5-5.0); ANION GAP 14.4 MEQ/L (5-15); BILIRUBIN,TOTAL 0.6 mg/dL (0.2-1.3); Calcium 9.3 mg/dL (8.4-10.2); Creatinine 1 0.7 mg/dL (0.52-1.04); EST GLOMERULAR FILTRATION RATE 109.3 ML/MIN; Potassium 3.5 mmol/L (3.5-5.1); Total Protein 7.8 g/dL (6.3-8.2)
[2024-06-12 04:35] LABS: HCG SERUM TEST NEGATIVE (NEGATIVE)
[2024-06-12 04:54] LABS: ATYPICAL LYMPHS 21 %; BAND 5 % (0.0-2.0); Lymphocytes 54 % (19.3-51.7); Monocyte 7 % (4.7-12.5); Neutrophils 13 % (34.0-71.1); Platelet Estimate NORMAL (NORMAL); Total Cells Counted 100
[2024-06-12 05:04] LABS: INFLUENZA B NEGATIVE (NEGATIVE); RESPIRATORY SYNCTIAL VIRUS NEGATIVE (NEGATIVE); SARS-CoV-2 Xpert Express NEGATIVE (NEGATIVE)
[2024-06-12 05:06] LABS: INFLUENZA A POSITIVE (NEGATIVE)
[2024-06-12 05:46] LABS: Appearance Clear (Clear); Bacteria None Seen /HPF (None Seen); Bilirubin Negative (Negative); Blood Negative (Negative); Epithelial Cells None Seen /HPF (None Seen); Glucose, Urine Negative (Negative); Hyaline Casts NONE SEEN /LPF (0-2); Ketones Trace (Negative); Leukocyte Esterase Negative (Negative); Nitrite Negative (Negative); Protein,Urine Dip Negative (Negative); RBC 0-2 /HPF (0-5); Specific Gravity <=1.005 (1.005-1.030); Urobilinogen 0.2 mg/dL (0.2); WBC 0-2 /HPF (0-5)
--- NOTE | 2024-06-12 05:52 | XRAY ---
CLINICAL HISTORY: pain COMPARISON: Comparison is made with prior imaging of 12/22/2022. TECHNIQUE: Non-contrast CT of the abdomen and pelvis was performed, with the following protocol: axial images, and reconstructed coronal and sagittal images. No intravenous contrast was administered. One of the following dose reduction techniques was utilized for this exam: Automated exposure control, adjustment of the mA and/or kV according to patient size, and use of iterative reconstruction. FINDINGS: Atelectatic bands with ground glass haziness is seen in right lower lobe. Abdomen: Post operative changes are seen in supra-umbilical midline with dense calcification. Liver: Normal in size, shape, and density. No focal lesions, cysts, or masses were identified. Gallbladder and Biliary System: The gallbladder is normal in size and shape. No wall thickening, pericholecystic fluid, or gallstones were identified. Pancreas: Pancreatic head, body, and tail are visualized and appear normal in size and density. No pancreatic masses or calcifications were noted. Spleen: Normal in size, shape, and density. No splenic lesions or masses were identified. Kidneys and Adrenal Glands: Both kidneys are normal in size, shape, and position. Cortical thickness is within normal limits. No renal calculi or hydronephrosis. Adrenal glands are unremarkable. Appendix: The appendix is normal in size without qasim appendiceal fat stranding, and without an appendicolith. No evidence of appendiceal abscess or perforation. Pelvis: Urinary Bladder: Normal in contour and wall thickness. No intraluminal lesions. Uterus: Normal in size and contour. No masses or abnormal thickening. Ovaries: Not well visualized but no gross abnormalities noted. Vagina: Normal in contour and wall thickness. Cervix: No evidence of mass or abnormal thickening. Peritoneal and Retroperitoneal Structures: No free fluid or abnormal fluid collections were identified within the abdomen or pelvis. No lymphadenopathy was noted. Bowel: The visualized bowel loops are normal in caliber and appearance. No evidence of bowel obstruction or wall thickening. Bones and Soft Tissues: Pelvic bones and soft tissues are unremarkable. No fractures or abnormal masses were identified. IMPRESSION: No evidence of acute intra-abdominal pathology. Stable post operative changes in abdomen. Electronically Signed by: Alejandro Mclain MD. (06/12/2024 05:49:08 EST)
[2024-06-12 06:02] VITALS: BP 118/79; PULSE 59; RESP 18
[2024-06-12 06:09] VITALS: O2SAT 99
== END 2024-06-12 06:19 | disposition home or self-care (01) ==
LOC: ED 03:48
DX: J10.1 Influenza due to other identified influenza virus with other respiratory manifestations (principal); R11.2 Nausea with vomiting, unspecified; R19.7 Diarrhea, unspecified; R10.84 Generalized abdominal pain; Z79.899 Other long term (current) drug therapy; Z72.0 Tobacco use
CPT/HCPCS: 0241U; 36415; 74176; 80053; 81001; 83690; 84703; 85025; 96360; 96374; 99284; J2270; J2405